=== PATIENT | female | born 1985 | race Caucasian/White ===

== ENCOUNTER 2021-05-16 13:15 | Outpatient (CLI) | payer BC ==
[~2021-05-16] VITALS: Ht 162.6 cm; Wt 58.0 kg
[2021-05-16 13:53] LABS: MICROSCOPIC INDICATED
== END 2021-05-16 14:51 | disposition home or self-care (01) ==
LOC: LDOP 13:15
PROVIDERS: ATTEND Obstetrics & Gynecology
DX: O09.522 Supervision of elderly multigravida, second trimester (principal); R10.9 Unspecified abdominal pain; Z3A.27 27 weeks gestation of pregnancy
CPT/HCPCS: 81001; 87086; 99201; 99211; G0463